=== PATIENT | male | born 1935 | race Caucasian/White ===

== ENCOUNTER 2023-12-08 17:05 | Observation (INO) | payer MEDICARE, SELFPAY ==
[2023-12-08] VITALS (8 sets, daily range): BP systolic 97–129; BP diastolic 60–75; PULSE 76; O2SAT 96
--- NOTE | 2023-12-08 13:21 | ED.GENMED ---
History of Present Illness
General
Chief Complaint: Fall
Source: patient
Time Seen by Provider: 12/08/23 13:10
History of Present Illness
History of Present Illness:
88-year-old male presents to the emergency room by ambulance for evaluation after being found on the floor. Patient evidently had a fall at about 2 AM. Unclear exactly when the patient was found to be on the floor. He is complaining of pain in
his right lateral chest. He does not recall hitting his head but he also does not recall how he ended up on the floor. He denies any shortness of breath. He has no abdominal pain.
Past History
Past History
ED Past Medical History: HTN, Hypercholesterolemia and Other (Dementia)
Social History
Tobacco: Non-smoker
Alcohol: None
Personal: Partner
Living: with roommate
Phy Exam
Physical Exam
Physical Exam:
General: Awake, Alert, Oriented X2. No acute distress.
Vitals: unremarkable
Head: Atraumatic
Eyes: Pupils equal, EOMI
Throat: Airway intact, no exudates
Neck: Trachea midline
Chest: Tenderness palpation over the right lateral chest particularly lower thoracic cage.
Lungs: Clear and equal b/l
Heart: Regular rate, no murmurs
Abd: Soft, Nontender, No pulsatile mass
Neuro: Nonfocal
Skin: Warm, dry, no rash
Extremities: pulses equal b/l, no edema
Course
Orders/Labs/Results
Orders:
Orders
12/08/23 12:54
Electrocardiogram (*1) Stat
Reason for Study: Fatigue / Weakness
12/08/23 12:55
EKG- Treatment ONCE
12/08/23 13:19
CT Chest W/o Iv Contrast Urgent
Comment:
Reason For Exam: fall, thoracic and right lat chest pain
CT Head W/o Iv Contrast Urgent
Comment:
Reason For Exam: fall, ? head injury
12/08/23 13:33
Complete Blood Count/With Diff Urgent
Urinalysis Reflex To Culture Urgent
Date Specimen was Collected: 12/08/23
Time Specimen was Collected: 13:27
Urine Microscopic Reflex Cult Urgent
12/08/23 15:21
Basic Metabolic Panel Urgent
Creatine Phosphokinase Urgent
12/08/23 15:47
Case Management Consult ONCE
Case Management Consult: Discharge Planning
Pt Eval And Treat Urgent
Activity Level: As Tolerated
Abnormal Lab Results
12/08/23
13:33
RBC 3.09 L 10^6/uL
(4.70-6.10)
Hgb 10.2 L g/dL
(13.0-18.0)
Hct 29.6 L %
(39.0-52.0)
MCV 95.8 H fL
(80.0-94.0)
MCH 33.0 H pg
(27.0-31.0)
RDW 15.9 H %
(11.5-14.5)
Plt Count 106 L 10^3/uL
(130-400)
MPV 12.2 H fL
(7.4-10.4)
Monocytes % 10.1 H %
(1.7-9.3)
Leukocyte Esterase Rfl Trace A
(Negative)
12/08/23 13:33
12/08/23 15:21
Vital Signs
Initial and Last Documented VS:
Initial Vital Signs
Temp Pulse Resp BP Pulse Ox
97.5 F 61 16 122/68 98
12/08/23 12:56 12/08/23 12:56 12/08/23 12:56 12/08/23 12:56 12/08/23 12:56
Last Documented Vital Signs
Temp Pulse Resp BP Pulse Ox
97.5 F 75 18 107/61 98
12/08/23 12:56 12/08/23 14:00 12/08/23 12:56 12/08/23 14:00 12/08/23 14:00
MDM/Problems Addressed
Differential Diagnosis Includes:
rib fx, subdural, intraparenchymal contusion
MDM/Problems Addressed:
Head CT shows no acute abnormality. CT of the chest was obtained which shows no rib fracture or lung injury. Patient's labs show mild anemia at 10.2. Chemistries are unremarkable including a CPK. No evidence of urinary tract infection.
Patient's good friend is here with the patient. He was recently discharged from rehab in [facility] close 2 his son's house. However this was not a satisfactory living situation. Patient was discharged from there and came to this friend's house
recently. However she is overwhelmed with the care that he needs. Case management consulted for disposition planning. Patient will need to be placed but he cannot be placed this evening. He will require hospitalization for further disposition
planning. Physical therapy came and evaluated the patient and find him unsafe to be discharged to home
*Radiology
Radiology exam reviewed: radiology read reviewed
*Pulse Oximetry
Patient hypoxic: no
*EKG
Heart Rate: 77
Rate: normal
Rhythm: ventricular paced
QRS Pattern: left bundle branch block
Ischemia: no ischemia
*[employer] Certified Powerplant Mechanic Interpretation
Rate: normal
Interpretation: abnormal
Rhythm: ventricular paced
*Critical Care Note
Total Time (30-74mins, 75-104mins- exclusive of procedures): Not Applicable
Patient Management
Social determinants of health affecting care: Living situation, Poor outpatient follow-up and Poor social support
Discussion with other providers: Hospitalist
ED Attending Note
-
Portions of this chart may have been created with voice recognition software.� Occasional wrong word or��sound alike� substitutions may have occurred due to the inherent limitations of voice recognition software.
Discharge Plan
Departure
Patient Disposition: Admit
Date of Disposition: 12/08/23
Time of Disposition: 16:31
Admit to: Med/Surg
Presentation/result/management discussed w/ accepting MD/DO: Hospitalist
Condition: Fair
Discharge Problem:
Fall, Dementia, Contusion of right chest wall
Prescriptions:
No Action
atorvastatin 80 MG tablet
80 mg PO HS
donepezil 10 MG tablet
10 mg PO HS
cyanocobalamin (vitamin B-12) 1,000 MCG tablet
2,500 mcg PO DAILY
aspirin 81 MG tablet,delayed release (DR/EC)
81 mg PO DAILY
ascorbic acid (vitamin C) [Vitamin C] 500 MG tablet
1,000 mg PO DAILY
famotidine 20 MG tablet
20 mg PO HS
metoprolol succinate 25 MG tablet extended release 24 hr
25 mg PO DAILY
amlodipine 10 MG tablet
10 mg PO DAILY 30 Days Qty: 30 0RF
lidocaine 5 % adhesive patch,medicated
1 patch topical DAILY PRN (Reason: back pain) Qty: 15 0RF
Rx Instructions:
apply for 12 hours, then remove for 12 hours before replacing
gabapentin 100 mg capsule
200 mg PO HS 7 Days Qty: 14 0RF
Referrals:
Hesham Moe MD [Family Provider] -
Interventions
Interventions:
*Risk Screen - Suicide Last Done: 12/08/23 12:56
*General Assessment Last Done: 12/08/23 12:56
*Neglect/Abuse Screening Last Done: 12/08/23 12:56
ED-Musculoskeletal Assessment Last Done: 12/08/23 13:02
ED- Neurological Assessment Last Done: 12/08/23 13:02
ED-Skin Assessment Last Done: 12/08/23 13:02
Discharge Date and Time
Print Language: [place]
[2023-12-08 13:53] LABS: Urine Albumin Trace (Neg - Trace); Urine Bilirubin Negative (Negative); Urine Character Clear (Clear); Urine Color Yellow; Urine Glucose Negative (Negative); Urine Ketone Negative (Negative); Urine Leukocyte Trace (Negative); Urine Nitrite Negative (Negative); Urine Occult Blood Negative (Negative); Urine Specific Gravity 1.015 (<1.030); Urine Urobilinogen 1+ (Neg - 1+); Urine pH 6.5 (5.0-9.0)
[2023-12-08 14:07] LABS: % Basophils 0.8 % (0-2); % Eosinophils 5.2 % (0-6); % Immature Granulocytes 0.2 % (0-0.5); % Lymphocytes 27.2 % (20.5-51.1); % Monocytes 10.1 % (1.7-9.3); % Neutrophils 56.5 % (42.2-75.2); Absolute Basophils 0.1 10^3/uL (0-0.2); Absolute Eosinophils 0.3 10^3/uL (0-0.7); Absolute Lymphocytes 1.6 10^3/uL (1.2-3.4); Absolute Monocytes 0.6 10^3/uL (0.1-0.6); Absolute Neutrophils 3.4 10^3/uL (1.4-6.5); Hematocrit 29.6 % (39.0-52.0); Hemoglobin 10.2 g/dL (13.0-18.0); Mean Corp Hgb Conc. 34.5 g/dL (33.0-37.0); Mean Corpuscular Volume 95.8 fL (80.0-94.0); Mean Platelet Volume 12.2 fL (7.4-10.4); Nucleated Red Blood Cells % 0 % (-); Platelet Count 106 10^3/uL (130-400); Red Blood Cell Count 3.09 10^6/uL (4.70-6.10); Red Cell Dist. Width 15.9 % (11.5-14.5); White Blood Cell Count 5.9 10^3/uL (4.8-10.8)
[2023-12-08 14:33] LABS: Urine Red Blood Cell 0-2 /HPF (0-2); Urine White Cell 0-2 /HPF (0-5)
[2023-12-08 15:40] LABS: Blood Urea Nitrogen 17 mg/dl (9-20); Carbon Dioxide 29 mmol/L (22-30); Creatine Phosphokinase 75 U/L (55-170); Potassium 3.7 mmol/L (3.5-5.1); eGFR > 60.00
[2023-12-08 15:51] LABS: Calcium 8.8 mg/dl (8.4-10.2); Chloride 106 mmol/L (98-107); Glucose 85 mg/dl (70-99); Sodium 137 mmol/L (135-145)
--- NOTE | 2023-12-08 16:25 | CM ---
CM following re: discharge planning.
CM consulted to assist pt with discharge planning at ED.
Reviewed pt's chart, met with pt. Pt's friend Barb and her son Ed at bedside.
Pt is an 88 year old male, arrived to ED after he fell at home.
PT will evaluate the pt shortly.
Pt is not a great historian, information obtained from pt's friend Barb and her son. Per friend, she and the pt have been living together in a condo for the past 6 years in a condo, no steps to enter. per friend, pt just discharged from [facility] in [place] on Tuesday, [facility]. Pt's friend stated that when she had a stroke in July, pt went to his son in [place], fell there, went to a hospital in [place] and from the hospital went to [facility] where he
spent around a month. Pt's friend stated pt has 4 children.
Pt's friend Barb stated she will not be able to care for pt anymore. She stated she will miss him but cannot care anymore.
CM will look into whether or not pt can return back to a SNF giving the fact that pt was just discharged from a SNF on Tuesday.
Medicare rules regarding eligibility for SNF level of care explained to pt's friend and her son. Per friend and her son if pt will not be eligible for SNF level of care then pt will return back home with [facility] and she will work with pt's children
regarding support and care to the pt at home.
D/C plan: SNF if qualified under previous required hospital stay or home with [facility].
--- NOTE | 2023-12-08 16:54 | HPS.HSE ---
Family Physician
-
Family Physician: Hesham Moe
Chief Complaint
-
fall
History of Present Illness
88-year-old male past medical history of dementia, hypertension, hyperlipidemia, GERD presenting by ambulance for evaluation after being found on the floor. He evidently had a fall around 2 AM. On unclear exactly when patient was found on the
floor. He is complaining of pain in his right lateral chest. He does not recall hitting his head and does not know how he ended up on the floor. He denies any shortness of breath. He denies any abdominal pain.
As per he has been recently having some slight cough without shortness of breath. He has had cough before secondary to GERD. No swelling. He has been in good health recently. No fevers or chills.
Medical History
Past Medical History
Past Medical History: Reports Other (dementia, hypertension, hyperlipidemia, GERD)
Past Surgical History: Reports None
Social History
Tobacco: Non-smoker
Alcohol: None
Drug: None
Family History
Family History: Not pertinent
Allergies / Home Medications
Allergies reflects when Allergies were last updated in [employer].
Home Medications with original date entered in [employer]
Allergy/Medication List:
Allergies
Allergy/AdvReac Type Severity Reaction Status Date / Time
No Known Allergies Allergy Verified 07/04/22 10:59
Home Medications
aspirin 81 mg tablet,delayed release 81 mg PO DAILY Blood clot prevention/tx 07/24/20
atorvastatin 80 mg tablet 80 mg PO HS High cholesterol 07/24/20
donepezil 10 mg tablet 10 mg PO HS Neurological Condition 07/24/20
metoprolol succinate 25 mg tablet,extended release 24 hr 25 mg PO DAILY Blood pressure 07/24/20
Review of Systems
-
History Source: Patient
A 12 point ROS was completed and negative except as noted: Yes
Constitutional: Reports No Symptoms
EENT: Reports No Symptoms
Respiratory: Reports See HPI
Cardiac: Reports No Symptoms
Abdomen/GI: Reports No Symptoms
: Reports No Symptoms
Musculoskeletal: Reports See HPI
Skin: Reports No Symptoms
Neurological: Reports No Symptoms
Endocrine: Reports No Symptoms
Hematologic/Lymphatic: Reports No Symptoms
Psych: Reports No Symptoms
Physical Exam
Vital Signs
Vital Signs
Temp Pulse Resp BP Pulse Ox
97.5 F 61 18 101/72 98
12/08/23 12:56 12/08/23 16:45 12/08/23 12:56 12/08/23 16:00 12/08/23 16:45
Physical Exam
General: Well Developed, Well Nourished and No Apparent Distress
HEENT: NormoCephalic, Moist mucous membranes and Atraumatic
Respiratory: Clear
Cardiac: S1/S2 and Regular Rhythm; No Murmur or Rub
GI: Soft, Non Tender, Non Distended and Normal Bowel Sounds; No Organomegaly
Rectal: Deferred by Provider
Musculoskeletal: No Clubbing, No Cyanosis, No Edema and Other (right rib tenderness )
Skin: No Rash
Neuro: Nonfocal/grossly intact
Laboratory Results
-
12/08/23 13:33
12/08/23 15:21
Data Reviewed
-
Lab Data: Labs Reviewed by me
Old Records: Reviewed
Impression/Plan
-
IMPRESSION:
PLAN:
# Possible right rib contusion
-Tender to palpation
-CT chest without any fractures
# Ambulatory dysfunction/fall
-CK unremarkable
-CT head, chest without any trauma or fracture
# Mild cough possibly secondary to atelectasis vs postnasal drip/GERD
-CT chest does show small focus of groundglass attenuation in the right upper lobe possibly scarring versus nonspecific alveolitis/pneumonitis, cardiomegaly and mild CHF
-Not in CHF exacerbation
-No clinically apparent pneumonitis
# Chronic anemia
-Hemoglobin 10.2, no recent hemoglobin but relatively stable over years
# Chronic thrombocytopenia
-Stable
Dementia
-Continue donepezil
Essential hypertension
-Continue amlodipine, metoprolol
Hyperlipidemia
-Continue statin
DNR/DNI
DVT prophylaxis�heparin
Regular diet
[2023-12-08] MEDS: HEPARIN 5000 UNITS SC (20:55)
[2023-12-08] MEDS: TYLENOL 650 MG PO (20:55)
[2023-12-08] MEDS: LIPITOR 80 MG PO (20:57)
[2023-12-08] MEDS: ARICEPT 10 MG PO (20:57)
[2023-12-09 07:20] VITALS: BP 129/81
[2023-12-09 08:19] LABS: Hemoglobin 10.4 g/dL (13.0-18.0); Mean Corp Hgb Conc. 33.5 g/dL (33.0-37.0); Mean Corpuscular Volume 98.4 fL (80.0-94.0); Mean Platelet Volume 11.8 fL (7.4-10.4); Platelet Count 104 10^3/uL (130-400); Red Blood Cell Count 3.15 10^6/uL (4.70-6.10); Red Cell Dist. Width 15.7 % (11.5-14.5); White Blood Cell Count 5.1 10^3/uL (4.8-10.8)
[2023-12-09 09:03] LABS: ALT (SGPT) 10 U/L (0-50); AST (SGOT) 23 U/L (17-59); Albumin 3.1 g/dl (3.5-5.0); Alkaline Phosphatase 91 U/L (38-126); Blood Urea Nitrogen 12 mg/dl (9-20); Calcium 8.7 mg/dl (8.4-10.2); Carbon Dioxide 29 mmol/L (22-30); Chloride 107 mmol/L (98-107); Estimated Creatinine Clearance 53 ml/min; Glucose 72 mg/dl (70-99); Potassium 3.9 mmol/L (3.5-5.1); Sodium 138 mmol/L (135-145); Total Bilirubin 2.1 mg/dl (0.2-1.3); Total Protein 5.4 g/dl (6.3-8.2); eGFR > 60.00
[2023-12-09 09:35] VITALS: BP 127/67; PULSE 73
[2023-12-09] MEDS: HEPARIN 5000 UNITS SC ×2 (09:46→20:47)
[2023-12-09] MEDS: ASPIR LOW (ENTERIC COATED) 81 MG PO (09:46)
[2023-12-09] MEDS: TOPROL XL 25 MG PO (09:46)
[2023-12-09 15:20] VITALS: BP 129/78
--- NOTE | 2023-12-09 15:31 | W.PN.HOSP.TC ---
Today's Communication/Plan
-
d/c planning for rehab
Assessment / Plan
Assessment / Plan
# Possible right rib contusion
-Patient had a unwitnessed mechanical fall, reported history of similar episodes in the past
-CT head without any acute abnormality
-Patient was having some right lower rib cage pain, CT chest did not show any fracture
-Lidocaine patch to be applied
Patient to be maintained on scheduled Tylenol and as needed Toradol for pain control
# Ambulatory dysfunction/fall
-PT OT recommended rehab.
# Chronic anemia
-At baseline, continue monitoring.
# Chronic thrombocytopenia
-Stable
# Dementia w/o behavioral problems
-Patient able to do ADL with minimal assistance
-Continue donepezil
# Essential hypertension
-Continue amlodipine, metoprolol
# Hyperlipidemia
-Continue statin
DNR/DNI
DVT prophylaxis�heparin
Anticipated Discharge: 24 - 48 hours
Subjective/Interval History
-
Date of Service: December 09, 2023
Resting comfortably in bed
Having right lower rib cage pain
Objective Data
-
Labs:
Laboratory Results
12/09/23
07:12
WBC 5.1
Hgb 10.4 L
Hct 31.0 L
Plt Count 104 L
Sodium 138
Potassium 3.9
Chloride 107
Carbon Dioxide 29
BUN 12
Creatinine 0.9
Glucose 72
Calcium 8.7
Total Bilirubin 2.1 H
AST 23
ALT 10
Alkaline Phosphatase 91
Vital Signs:
Vital Signs
Temp Pulse Resp BP Pulse Ox
97.5 F 81 20 129/81 97
12/09/23 07:20 12/09/23 09:46 12/09/23 07:20 12/09/23 09:46 12/09/23 09:43
I&O
12/08/23 12/09/23 12/10/23
06:59 06:59 06:59
Output Total 600 / 600
Balance -600 / -600
Review of Systems
-
Unable to obtain full review of systems at this time due to: Acuity
Physical Exam
-
General: No Apparent Distress and Comfortable
HEENT: Negative Oxygen
Neuro: Awake, Alert and No Motor Deficits
--- NOTE | 2023-12-09 15:46 | CM ---
Addendum entered by Ro Elder 12/09/23 16:47:
Pt being referred to SNF based on recommendations provided by outpatient career services director (who was approved by pt's son as the decision maker): [facility]; [facility]; [facility] and [facility]. Will follow up in AM for available beds.
Original Note:
MCKINLEY spoke with Morgan's son this morning who advised they have retained a legal firm and rn field case manager to assist with placement for Morgan. I called and left a voicemail for the rn field case manager, she called me this afternoon and left me a voicemail,
and I just left another voicemail for her, anticipating a call back in about 10 minutes per a text she sent me.
[2023-12-09] MEDS: LIDOCAINE 4% PATCH 1 PATCH TOPICAL (16:48)
[2023-12-09] MEDS: ARICEPT 10 MG PO (21:04)
[2023-12-09] MEDS: LIPITOR 80 MG PO (21:04)
[2023-12-09 23:00] VITALS: BP 135/79
[2023-12-09 23:53] VITALS: BP 135/79
[2023-12-10 07:20] VITALS: BP 133/75
[2023-12-10] MEDS: HEPARIN 5000 UNITS SC ×2 (08:00→19:24)
[2023-12-10] MEDS: TOPROL XL 25 MG PO (08:00)
[2023-12-10] MEDS: ASPIR LOW (ENTERIC COATED) 81 MG PO (08:00)
[2023-12-10] MEDS: LIDOCAINE 4% PATCH 1 PATCH TOPICAL (08:01)
[2023-12-10 08:51] LABS: Blood Urea Nitrogen 13 mg/dl (9-20); Calcium 9.3 mg/dl (8.4-10.2); Carbon Dioxide 28 mmol/L (22-30); Chloride 104 mmol/L (98-107); Estimated Creatinine Clearance 53 ml/min; Glucose 77 mg/dl (70-99); Potassium 3.7 mmol/L (3.5-5.1); Sodium 139 mmol/L (135-145); eGFR > 60.00
[2023-12-10 08:52] LABS: Hematocrit 37.3 % (39.0-52.0); Hemoglobin 12.2 g/dL (13.0-18.0); Mean Corp Hgb Conc. 32.7 g/dL (33.0-37.0); Mean Corpuscular Hgb 32.6 pg (27.0-31.0); Mean Corpuscular Volume 99.7 fL (80.0-94.0); Mean Platelet Volume 12.3 fL (7.4-10.4); Platelet Count 136 10^3/uL (130-400); Red Blood Cell Count 3.74 10^6/uL (4.70-6.10); Red Cell Dist. Width 15.9 % (11.5-14.5); White Blood Cell Count 5.2 10^3/uL (4.8-10.8)
--- NOTE | 2023-12-10 12:27 | W.PN.HOSP.TC ---
Today's Communication/Plan
-
rehab placement
Assessment / Plan
Assessment / Plan
# Possible right rib contusion
-Patient had a unwitnessed mechanical fall, reported history of similar episodes in the past
-CT head without any acute abnormality
-Patient was having some right lower rib cage pain, CT chest did not show any fracture
-Lidocaine patch to be applied
Patient to be maintained on scheduled Tylenol and as needed Toradol for pain control
# Ambulatory dysfunction/fall
-PT OT recommended rehab.
# Chronic anemia
-At baseline, continue monitoring.
# Chronic thrombocytopenia
-Stable
# Dementia w/o behavioral problems
-Patient able to do ADL with minimal assistance
-Continue donepezil
# Essential hypertension
-Continue amlodipine, metoprolol
# Hyperlipidemia
-Continue statin
DNR/DNI
DVT prophylaxis�heparin
Anticipated Discharge: 24 - 48 hours
Subjective/Interval History
-
Date of Service: December 10, 2023
resting comfortably in bed
No reported acute issues overnight
Objective Data
-
Labs:
Laboratory Results
12/10/23
07:08
WBC 5.2
Hgb 12.2 L
Hct 37.3 L
Plt Count 136 D
Sodium 139
Potassium 3.7
Chloride 104
Carbon Dioxide 28
BUN 13
Creatinine 0.9
Glucose 77
Calcium 9.3
Vital Signs:
Vital Signs
Temp Pulse Resp BP Pulse Ox
97.6 F 65 16 133/75 100
12/10/23 07:20 12/10/23 08:00 12/10/23 07:20 12/10/23 08:00 12/10/23 07:20
I&O
12/09/23 12/10/23 12/11/23
06:59 06:59 06:59
Intake Total 800 / 800
Output Total 600 / 600 225 / 225
Balance -600 / -600 575 / 575
Review of Systems
-
Respiratory: Reports No Symptoms
Cardiac: Reports No Symptoms
Abdomen/GI: Reports No Symptoms
Physical Exam
-
General: Cachectic
HEENT: Negative Oxygen
Respiratory: Other (Right lower rib tenderness on exam)
Neuro: Awake, Alert and No Motor Deficits
[2023-12-10 15:11] VITALS: BP 120/71
--- NOTE | 2023-12-10 17:33 | CM ---
CM follow up with facilities identified by outpatient case repairer, Pilar, . Unable to speak with anyone at the facilities: [facility], [facility], [facility], and [facility].
Morgan will likely be discharge in 24-48 hours. CM to continue to follow to identify available SNF facilities.
Morgan had a recent SNF stay in [place] and is within the 30 day window for Medicare 3 day stay.
Plan: CM to continue to follow to identify available SNF facilities.
PCP: Dr. Hesham Moe
Pharmacy: [facility]
[2023-12-10] MEDS: ARICEPT 10 MG PO (20:59)
[2023-12-10] MEDS: LIPITOR 80 MG PO (20:59)
[2023-12-10 23:45] VITALS: BP 126/75
[2023-12-11 07:10] VITALS: BP 141/85
[2023-12-11 08:01] LABS: Hematocrit 33.3 % (39.0-52.0); Hemoglobin 11.5 g/dL (13.0-18.0); Mean Corp Hgb Conc. 34.5 g/dL (33.0-37.0); Mean Corpuscular Hgb 33.6 pg (27.0-31.0); Mean Corpuscular Volume 97.4 fL (80.0-94.0); Platelet Count 121 10^3/uL (130-400); Red Blood Cell Count 3.42 10^6/uL (4.70-6.10); Red Cell Dist. Width 15.6 % (11.5-14.5); White Blood Cell Count 4.5 10^3/uL (4.8-10.8)
[2023-12-11 08:17] LABS: Blood Urea Nitrogen 14 mg/dl (9-20); Calcium 8.9 mg/dl (8.4-10.2); Carbon Dioxide 26 mmol/L (22-30); Chloride 106 mmol/L (98-107); Estimated Creatinine Clearance 60 ml/min; Glucose 70 mg/dl (70-99); Potassium 3.5 mmol/L (3.5-5.1); Sodium 138 mmol/L (135-145); eGFR > 60.00
[2023-12-11] MEDS: TOPROL XL 25 MG PO (08:57)
[2023-12-11] MEDS: HEPARIN 5000 UNITS SC ×2 (08:58→19:58)
[2023-12-11] MEDS: ASPIR LOW (ENTERIC COATED) 81 MG PO (08:58)
[2023-12-11] MEDS: LIDOCAINE 4% PATCH 1 PATCH TOPICAL (08:59)
--- NOTE | 2023-12-11 14:13 | W.PN.HOSP.TC ---
Today's Communication/Plan
-
d/c planning for rehab
Assessment / Plan
Assessment / Plan
# Possible right rib contusion
-Patient had a unwitnessed mechanical fall, reported history of similar episodes in the past
-CT head without any acute abnormality
-Patient was having some right lower rib cage pain, CT chest did not show any fracture
-Lidocaine patch to be applied
-Patient to be maintained on scheduled Tylenol and as needed Toradol for pain control
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
-Spouse reported that patient was supposed to follow-up with Dr. Pereira on 12/08 as office contacted stating that he has periodic A-fib
-Discussed with on-call cardio in July the patient has been in A-fib from 18 september, have f/u with cardio LOCAL TELEPHONE OPERATOR on 01/08
-No further intervention required is currently rate controlled.
# Ambulatory dysfunction/fall
-PT OT recommended rehab.
# Chronic anemia
-At baseline, continue monitoring.
# Chronic thrombocytopenia
-Stable
# Dementia w/o behavioral problems
-Patient able to do ADL with minimal assistance
-Continue donepezil
# Essential hypertension
-Continue amlodipine, metoprolol
# Hyperlipidemia
-Continue statin
DNR/DNI
DVT prophylaxis�heparin
Anticipated Discharge: Within 24 hours
Subjective/Interval History
-
Date of Service: December 11, 2023
Continues to some right lower rib cage pain
No other reported issues
Objective Data
-
Labs:
Laboratory Results
12/11/23
06:53
WBC 4.5 L
Hgb 11.5 L
Hct 33.3 L
Plt Count 121 L
Sodium 138
Potassium 3.5
Chloride 106
Carbon Dioxide 26
BUN 14
Creatinine 0.8
Glucose 70
Calcium 8.9
Vital Signs:
Vital Signs
Temp Pulse Resp BP Pulse Ox
97.5 F 70 16 141/85 100
12/11/23 07:10 12/11/23 07:10 12/11/23 07:10 12/11/23 07:10 12/11/23 07:10
I&O
12/10/23 12/11/23 12/12/23
06:59 06:59 06:59
Intake Total 800 / 800 480 / 480
Output Total 225 / 225
Balance 575 / 575 480 / 480
Review of Systems
-
Respiratory: Reports No Symptoms
Cardiac: Reports No Symptoms
Abdomen/GI: Reports No Symptoms
Physical Exam
-
General: Cachectic
HEENT: Negative Oxygen
Respiratory: Other (Right lower rib tenderness on exam)
Cardiac: Regular Rhythm and S1/S2; Negative Murmur
Neuro: Awake, Alert and No Motor Deficits
--- NOTE | 2023-12-11 14:27 | TRANSFER ---
patient transferred to [facility] for census management. Report given to Olga ROYAL. Patient transferred around 1410 via wheel chair.
[2023-12-11 14:39] VITALS: BP 124/65
[2023-12-11 19:00] VITALS: BP 108/46
[2023-12-11] MEDS: ARICEPT PO (22:06)
[2023-12-11] MEDS: LIPITOR PO (22:06)
--- NOTE | 2023-12-11 22:08 | PTCARENOTE ---
Pt uncooperative at this time. Pt not willing to take PO medications. Pt yelling at staff, attempting to hit. Reality orientation attempted. Pt not wanting to be disturbed at this time. Medsitter/ bed alarm remain in place.
[2023-12-11 22:43] VITALS: BP 126/76
[2023-12-12 05:24] VITALS: BMI 23.5
[2023-12-12 06:00] VITALS: BMI 23.5
--- NOTE | 2023-12-12 06:23 | PTCARENOTE ---
Pt impulsive overnight, needing to use the bathroom. Pt cooperative with care t/o the night. pt following commands without difficulty. Bed alarm, med sitter remains in place. Will continue to monitor.
--- NOTE | 2023-12-12 07:34 | W.PN.HOSP.TC ---
Addendum entered and electronically signed by Jabari Segal MD 12/12/23 15:49:
I agree to the below
Mr. Weber was seen and examined
No new complaints
His was at bedside
-She was asking about if SW/CM would come around to discuss SNF
Ambulatory dysfunction/Fall
-PT/OT recommeneded rehab
Right rib pain likely contusion
-Continue local analgesics
Chronic thormbocytopenia
-Stable
HTN
-Continue antihypertensives
HLD
-Continue statin
Cleared for DC to SNF when bed avaliable
Original Note:
Today's Communication/Plan
-
.
Assessment / Plan
Assessment / Plan
Patient is an 88-year-old male with past medical history of dementia and falls, presenting to the hospital after unwitnessed fall.
Possible right rib contusion
� Unwitnessed mechanical fall, history of similar episodes
� CT head without any acute intracranial abnormalities
� CT chest without any fracture
� Continue to use lidocaine patch for pain management
� Continue scheduled Tylenol and as needed Toradol for pain control
� Continue fall precautions
Reflux/regurgitation of food
� Speech consulted. Input appreciated
� VASc scheduled for tomorrow
� Recommended IDDSI level 6 soft and bite-size with thin liquids. Medications crushed in pur�e, one-to-one assist, 100% supervision
� Aspiration and reflux precautions
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
� Missed follow-up appointment with Dr. Pereira on 12/08 for periodic A-fib
� Discussed with on-call cardio that patient has been in A-fib since 18 September, follow-up with cardiology YOUTH ACCOMMODATION SUPPORT WORKER 01/08
� Currently rate controlled. Continue to monitor
Ambulatory dysfunction/fall
� PT/OT recommended rehab
Chronic anemia
-Stable, continue to monitor outpatient
Dementia without behavioral problems
� Patient able to do ADLs with minimal it assistant
� Continue donezepil
Essential hypertension
� Continue amlodipine and metoprolol
Hyperlipidemia
� Continue statin
DNR/DNI
DVT prophylaxis�heparin
Anticipated Discharge: 24 - 48 hours
Subjective/Interval History
-
Date of Service: December 12, 2023
Patient somnolent and unable to answer questions. Patient responded yes to every question asked. Upon reassessment later, patient seemed mildly confused. Discussed care with , at bedside
Objective Data
-
Labs:
Laboratory Results
12/12/23
06:00
WBC Pending
Hgb Pending
Hct Pending
Plt Count Pending
Sodium Pending
Potassium Pending
Chloride Pending
Carbon Dioxide Pending
BUN Pending
Creatinine Pending
Glucose Pending
Calcium Pending
Vital Signs:
Vital Signs
Temp Pulse Resp BP Pulse Ox
99.1 F 85 19 126/76 99
12/11/23 22:43 12/11/23 22:43 12/11/23 22:43 12/11/23 22:43 12/11/23 22:43
I&O
12/11/23 12/12/23 12/13/23
06:59 06:59 06:59
Intake Total 480 / 480 120 / 120
Balance 480 / 480 120 / 120
Review of Systems
-
Unable to obtain full review of systems at this time due to: Dementia
Physical Exam
-
General: Other (Elderly)
HEENT: Normocephalic and Atraumatic
Respiratory: Other (Right lower rib tenderness)
Cardiac: Regular Rhythm and S1/S2
GI: Soft, Nontender and Nondistended
Musculoskeletal: No Clubbing, No Cyanosis and No Edema
Skin: Warm and Dry
Psych: Calm and Confused
Data Reviewed
-
Labs: Labs Reviewed by me and Discussed with Physician
Old Records: Reviewed
[2023-12-12 08:08] VITALS: BP 127/73
[2023-12-12] MEDS: HEPARIN SC ×2 (08:14→20:54)
[2023-12-12] MEDS: LIDOCAINE 4% PATCH 1 PATCH TOPICAL (08:14)
[2023-12-12] MEDS: ASPIR LOW (ENTERIC COATED) 81 MG PO (08:14)
[2023-12-12] MEDS: TOPROL XL 25 MG PO (08:14)
[2023-12-12 10:20] LABS: Hematocrit 32.7 % (39.0-52.0); Mean Corp Hgb Conc. 33.6 g/dL (33.0-37.0); Mean Corpuscular Hgb 33.7 pg (27.0-31.0); Mean Corpuscular Volume 100.3 fL (80.0-94.0); Mean Platelet Volume 11.3 fL (7.4-10.4); Platelet Count 127 10^3/uL (130-400); Red Blood Cell Count 3.26 10^6/uL (4.70-6.10); Red Cell Dist. Width 15.8 % (11.5-14.5); White Blood Cell Count 4.6 10^3/uL (4.8-10.8)
[2023-12-12 10:44] LABS: Blood Urea Nitrogen 13 mg/dl (9-20); Carbon Dioxide 27 mmol/L (22-30); Chloride 110 mmol/L (98-107); Estimated Creatinine Clearance 53 ml/min; Glucose 79 mg/dl (70-99); Potassium 3.8 mmol/L (3.5-5.1); Sodium 141 mmol/L (135-145); eGFR > 60.00
[2023-12-12 12:11] LABS: COVID-19 Antigen Negative (Negative)
--- NOTE | 2023-12-12 13:38 | CM ---
Reviewed chart, Received call from MCKINLEY Quezada from [employer] who patient and family are working with. Provided update. She was made aware that patient is obs. She stated that patient has had a 3 night stay in acute care in the past 30 days (in
[place]), will confirm. Spoke with Madyson in admissions at [facility] #[phone] who offered acceptance for tomorrow. # For report [phone] # for fax # [phone]
Placed a call to patient's CM to update, Pilar, however she was not available. Placed a call to Shankar, patient's son to update about availability at [facility]. He is agreeable to her being sent there upon medical clearance. Will update poa when
she returns call. Patient's son, stated that he is traveling currently and he would like for his to be deferred while he is in transit, Jessica Tomeka [phone]
Plan: Case management will continue to follow and assist with discharge planning. [facility] upon medical clearance.
--- NOTE | 2023-12-12 14:36 | PTOTSP ---
SPEECH THERAPY SWALLOW EVALUATION:
Patient exhibits clinical signs of oropharyngeal dysphagia, likely chronic related to dementia and GERD, in patient with history of oropharyngeal dysphagia. Currently with Chest CT concerning for possible pneumonitis. Patient had prior VSE 4.5 years
ago at [place] per significant other report, which had recommended thickened liquids for ~6 months. No history of pneumonia per significant other. Recommend Videofluoroscopic Swallowing Study to assess swallow physiology at this time. Given
chronicity of dysphagia, stability of respiratory status (breathing comfortably on room air), patient appears safe to continue an oral diet (modified) until VSE. Recommend IDDSI Level 6 Soft and Bite Size diet, thin liquids. Medications crushed in
puree. Strict aspiration and reflux precautions: Upright positioning; Remain upright 30 minutes after eating/drinking; 1:1 assist and 100% supervision; Small single sips/bites; slow rate of intake; oral care 3x/day to reduce risk for nosocomial
infection; check for pocketing; ensure patient swallows prior to next bite; monitor for signs of aspiration and d/c oral diet and make NPO should pt exhibit decline in mental or respiratory status prior to VSE; Eat only when alert. Speech therapy to
follow with additional recommendations following VSE.
RECOMMEND:
1) IDDSI Level 6 Soft and Bite Size diet, thin liquids
2) Medications crushed in puree
3) Strict aspiration and reflux precautions: Upright positioning; Remain upright 30 minutes after eating/drinking; 1:1 assist and 100% supervision; Small single sips/bites; slow rate of intake; oral care 3x/day to reduce risk for nosocomial
infection; check for pocketing; ensure patient swallows prior to next bite; monitor for signs of aspiration and d/c oral diet and make NPO should pt exhibit decline in mental or respiratory status prior to VSE; Eat only when alert
4) Speech therapy to follow
[2023-12-12 15:05] VITALS: BP 112/64; PULSE 82; O2SAT 94
[2023-12-12 15:35] VITALS: BP 112/64
[2023-12-12] MEDS: ARICEPT 10 MG PO (21:02)
[2023-12-12] MEDS: LIPITOR 80 MG PO (21:02)
[2023-12-12 23:00] VITALS: BP 135/70
[2023-12-13 06:00] VITALS: BMI 20.9
[2023-12-13 07:00] VITALS: BP 135/82
[2023-12-13 07:14] LABS: Hematocrit 34.3 % (39.0-52.0); Hemoglobin 11.3 g/dL (13.0-18.0); Mean Corp Hgb Conc. 32.9 g/dL (33.0-37.0); Mean Corpuscular Hgb 32.8 pg (27.0-31.0); Mean Corpuscular Volume 99.7 fL (80.0-94.0); Mean Platelet Volume 11.3 fL (7.4-10.4); Platelet Count 137 10^3/uL (130-400); Red Blood Cell Count 3.44 10^6/uL (4.70-6.10); White Blood Cell Count 5.4 10^3/uL (4.8-10.8)
--- NOTE | 2023-12-13 07:20 | W.PN.HOSP.TC ---
Addendum entered and electronically signed by Jabari Segal MD 12/13/23 13:05:
I agree to the below
Mr. Weber was seen and examined
No new complaints
His was at bedside
-She was asking about if SW/CM would come around to discuss SNF
Ambulatory dysfunction/Fall
-PT/OT recommeneded rehab
Dysphagia
-Video Swallow. Moderate Dysphagia.
-Continue IDDSI guideline directed diet per Speech
Right rib pain likely contusion
-Continue local analgesics
Chronic thormbocytopenia
-Stable
HTN
-Continue antihypertensives
HLD
-Continue statin
Cleared for DC to SNF when bed avaliable
Original Note:
Today's Communication/Plan
-
.
Assessment / Plan
Assessment / Plan
Patient is an 88-year-old male with past medical history of dementia and falls, presenting to the hospital after unwitnessed fall.
Possible right rib contusion
� Unwitnessed mechanical fall, history of similar episodes
� CT head without any acute intracranial abnormalities
� CT chest without any fracture
-PT/OT evaluation today. Input appreciated
� Continue to use lidocaine patch for pain management
� Continue scheduled Tylenol and as needed Toradol for pain control
� Continue fall precautions
Reflux/regurgitation of food
� Speech consulted. Input appreciated
� VSE today
� Speech consulted on 12/11. Recommended IDDSI level 6 soft and bite-size with thin liquids. Medications crushed in pur�e, one-to-one assist, 100% supervision
� Aspiration and reflux precautions
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
� Missed follow-up appointment with Dr. Pereira on 12/08 for periodic A-fib
� Discussed with on-call cardio that patient has been in A-fib since 18 September, follow-up with cardiology COMPENSATION CONSULTING MANAGER 01/08
� Currently rate controlled. Continue to monitor
Ambulatory dysfunction/fall
� PT/OT recommended rehab
- PT today. appreciate input
Chronic anemia
-Stable, continue to monitor outpatient
Dementia without behavioral problems
� Patient able to do ADLs with minimal medical assistant internal medicine
� Continue donezepil
Essential hypertension
� Continue amlodipine and metoprolol
Hyperlipidemia
� Continue statin
DNR/DNI
DVT prophylaxis�heparin
Plan to DC pt to [facility]
Anticipated Discharge: Today
Subjective/Interval History
-
Date of Service: December 13, 2023
Patient very tired during conversation this morning. He states he has no pain or new symptoms.
Objective Data
-
Labs:
Laboratory Results
12/13/23
06:39
WBC 5.4
Hgb 11.3 L
Hct 34.3 L
Plt Count 137
Sodium Pending
Potassium Pending
Chloride Pending
Carbon Dioxide Pending
BUN Pending
Creatinine Pending
Glucose Pending
Calcium Pending
Vital Signs:
Vital Signs
Temp Pulse Resp BP Pulse Ox
97.8 F 94 12 135/70 98
12/12/23 23:00 12/12/23 23:00 12/12/23 23:00 12/12/23 23:00 12/12/23 23:00
I&O
12/12/23 12/13/23 12/14/23
06:59 06:59 06:59
Intake Total 120 / 120 660 / 660 100 / 100
Balance 120 / 120 660 / 660 100 / 100
Review of Systems
-
Unable to obtain full review of systems at this time due to: Dementia
History Source: Patient
All other systems: Reviewed and negative
Physical Exam
-
General: Cachectic and Other (Elderly)
HEENT: Normocephalic and Atraumatic
Respiratory: Clear to Auscultation
Cardiac: Regular Rhythm and S1/S2
Musculoskeletal: No Clubbing, No Cyanosis and No Edema
Skin: Warm and Dry
Psych: Calm
Data Reviewed
-
Total Time Spent with Patient (in minutes): 20
Labs: Labs Reviewed by me and Discussed with Physician
Old Records: Reviewed
[2023-12-13] MEDS: LIDOCAINE 4% PATCH 1 PATCH TOPICAL (07:42)
[2023-12-13] MEDS: HEPARIN SC (07:43)
[2023-12-13] MEDS: ASPIR LOW (ENTERIC COATED) 81 MG PO (07:43)
[2023-12-13] MEDS: TOPROL XL 25 MG PO (07:43)
[2023-12-13 07:44] LABS: Blood Urea Nitrogen 14 mg/dl (9-20); Calcium 9.2 mg/dl (8.4-10.2); Carbon Dioxide 28 mmol/L (22-30); Chloride 109 mmol/L (98-107); Estimated Creatinine Clearance 44 ml/min; Glucose 119 mg/dl (70-99); Potassium 3.7 mmol/L (3.5-5.1); Sodium 142 mmol/L (135-145); eGFR > 60.00
--- NOTE | 2023-12-13 10:00 | PTOTSP ---
Speech Language Pathology
VIDEOFLUOROSCOPIC SWALLOWING EXAMINATION (VSE) completed. Overall, pt with mild oral and mod pharyngeal dysphagia. Penetration/aspiration and some regurgitation noted during study.
Significant other reported previous VSE 4.5 years ago, completed, at [place], and pt was on thickened liquids for approximately 6 months following this. Given this and current swallow function, suspect chronic progressive dysphagia. Recommend GOC
discussion, as pt is at risk for aspiration with P.O. intake with PEG not being supported in the literature for patients with dementia.
Recommend:
(1) GOC discussion
(2) NPO vs IDDSI Level 6 (Soft/Bite-Sized) and Thin liquids via single small cup sip if family willing to accept risk of P.O. intake
(3) Oral care 4x/day with suctioning as needed
(4) Meds 1 at a time as tolerated
(5) Aspiration precautions: single small cup sips (pt impulsive and takes large sips), slow rate, sit upright, occasional dry swallows, intermittent throat clear/cough and reswallow
(6) EMERGENCY ROOM PHYSICIAN ASSISTANT to continue to follow
--- NOTE | 2023-12-13 10:07 | CM ---
Addendum entered by HOMER Hernandez 12/13/23 14:24:
Family updated and agreeable to discharge. Reviewed IMM will put on chart.
Addendum entered by HOMER Hernandez 12/13/23 10:17:
Messaged attending who stated that patient still needs some testing. Will discharge when medically clear.
Original Note:
Reviewed chart, attending note states patient stable for discharge today. Placed a call to Madyson in admissions at [facility]. She stated that #for report is [phone] and fax is [phone].
Will update attending about bed availability. Will update family about acceptance.
Patient will need ambulance.
No auth needed.
Plan: Case management will continue to follow and assist with discharge planning. [facility].
--- NOTE | 2023-12-13 13:50 | W.DCSUMMARY ---
Discharge Summary
Discharge Data
Date of Admission: 12/08/23
Date of Discharge: 12/13/23
Total time spent discharging patient (in min): 30
-
Pending Results: No
Hospital Course
Admission diagnoses�ambulatory dysfunction, right rib contusion
Diagnoses prior to admission�
Dementia
Hypertension
Hyperlipidemia
GERD
Hospital course�patient is an 88-year-old male with past medical history of dementia, hypertension, hyperlipidemia, GERD presenting to [facility] after being found on the floor secondary to unwitnessed fall. He stated he does not recall
losing consciousness or hitting his head. Patient at time of admission was complaining of right lateral chest pain. CT head showed no acute abnormalities and CT chest did not show any fractures. Pain was managed with lidocaine patch and scheduled
Tylenol and Toradol as needed. During admission patient remain pleasantly confused, only able to answer some questions but was amenable to treatment. Speech evaluation recommended IDDSI 6 bite-size foods/thin liquids via single cup sips due to high
risk of aspiration. PT/OT evaluation recommended rehabilitation facility at time of discharge. Since during admission patient missed follow-up with cardiology, patient to follow-up with cardiology MEDICATION NURSE on 01/08.
Data reviewed�
12/07- chest CT:
IMPRESSION:
1. Small focus of groundglass attenuation in the right upper lobe as above, small area of scarring versus nonspecific alveolitis/pneumonitis. Not highly suspicious for traumatic pulmonary injury.
2. Cardiomegaly and mild CHF.
3. No acute fracture identified.
4. Coronary and aortic atherosclerosis.
12/07- Head CT:
IMPRESSION: No significant change. No acute pulmonary process.
Discharge Plan
-
Patient Disposition: [facility]/SNF
Discharge Diagnosis/Procedures: rib contusion
Condition: Fair
Diet: As tolerated
Additional Diets: IDDSI Level 6/thin liquids via single cup sips. High aspiration risk, monitor closely
Activity: With assistance and As tolerated
Driving Restrictions: As prior to admission
Bathing Restrictions: None
Referrals:
Hesham Moe MD [Family Provider] - in one week
Prescriptions:
New
lidocaine 4 % Adhesive Patch,Medicated
1 patch topical DAILY 30 Days Qty: 30 2RF
Continued
atorvastatin 80 MG tablet
80 mg PO HS
donepezil 10 MG tablet
10 mg PO HS
aspirin 81 MG tablet,delayed release (DR/EC)
81 mg PO DAILY
metoprolol succinate 25 MG tablet extended release 24 hr
25 mg PO DAILY
Discharge Orders:
Discharge Patient (As Directed); Ordered 12/13/23
Ordered By: Sunil Samayoa
Discharge Date and Time
Print Language: [place]
[2023-12-13 15:00] VITALS: BP 106/67
== END 2023-12-13 18:45 ==
LOC: 3 WEST ACU 17:05
PROVIDERS: Hospitalist; Student in an Organized Health Care Education/Training Program; ADMITTING PHYSICIAN Hospitalist; ATTENDING PHYSICIAN Hospitalist; EMERGENCY PHYSICIAN Emergency Medicine; FAMILY PHYSICIAN Internal Medicine
DX: S20.211A Contusion of right front wall of thorax, initial encounter (principal); R26.2 Difficulty in walking, not elsewhere classified; R07.81 Pleurodynia; R13.10 Dysphagia, unspecified; R07.89 Other chest pain; W18.30XA Fall on same level, unspecified, initial encounter; Y93.9 Activity, unspecified; Y92.009 Unspecified place in unspecified non-institutional (private) residence as the place of occurrence of the external cause; F03.90 Unspecified dementia, unspecified severity, without behavioral disturbance, psychotic disturbance, mood disturbance, and anxiety; I70.0 Atherosclerosis of aorta; I50.9 Heart failure, unspecified; I44.39 Other atrioventricular block; I48.91 Unspecified atrial fibrillation; I11.0 Hypertensive heart disease with heart failure; E78.00 Pure hypercholesterolemia, unspecified; I44.7 Left bundle-branch block, unspecified; K21.9 Gastro-esophageal reflux disease without esophagitis; R05.9 Cough, unspecified; D69.6 Thrombocytopenia, unspecified; D64.9 Anemia, unspecified; Z75.1 Person awaiting admission to adequate facility elsewhere; Z60.8 Other problems related to social environment; Z79.82 Long term (current) use of aspirin; Z66 Do not resuscitate; Z95.0 Presence of cardiac pacemaker; Z11.52 Encounter for screening for COVID-19
CPT/HCPCS: 70450; 71250; 74230; 80048; 80053; 81003; 81015; 82550; 85025; 85027; 87811; 92610; 92611; 93005; 97116; 97530; 99285; G0378